=== PATIENT | male | born 1965 | race Caucasian/White ===

== ENCOUNTER → 2020-05-13 | Outpatient (CLI) | payer OTHER ==
--- NOTE | 2020-05-13 08:55 | NM ---
EXAMINATION TYPE: NM hepatobiliary w EF DATE OF EXAM: 05/13/2020 COMPARISON: NONE HISTORY: Right upper quadrant pain. TECHNIQUE: After the intravenous administration of 4.12 mCi Tc 99m Mebrofenin hepatobiliary scintigra phy is performed. Immediate images post injection. FINDINGS: There is satisfactory initial accumulation of tracer by the liver. The gallbladder is visualized wit hin 15 minutes. The small bowel activity is not even identified after 60 minutes. At one hour 8 oun heather of oral ensure plus is given to mimic CCK and gallbladder ejection fraction is calculated at 68 % , in the normal range. Therefore there is no scintigraphic evidence of cystic or common bile duct ob struction to suggest acute cholecystitis or gallbladder dyskinesia. IMPRESSION: Exam is within normal limits.
== END | disposition home or self-care (01) ==
LOC: RADNMMAIN 06:35
PROVIDERS: ATTEND Family Medicine
DX: R10.9 Unspecified abdominal pain (principal); R14.0 Abdominal distension (gaseous)
CPT/HCPCS: 78226; A9537

== ENCOUNTER 2020-06-04 10:52 | Day surgery (SDC) | payer OTHER ==
[2020-06-01 11:56] VITALS: BMI 27.5
[~2020-06-04 10:52] MED LIST: LACTATED RINGERS 1,000 ML IV SCH; LIDOCAINE 1% (10MG/ML) FOR IV START INTRADERMA PRN
[2020-06-04 11:37] VITALS: TEMP 97.8
[2020-06-04] MEDS ORDERED: LACTATED RINGERS 1,000 ML IV ONE (11:37)
[2020-06-04] MEDS ORDERED: LIDOCAINE 1% INJ 10MG/ML (20 ML MDV) ONE (12:17)
[2020-06-04] MEDS ORDERED: PROPOFOL 10 MG/ML 20 ML VIAL IV ONE (12:17)
--- NOTE | 2020-06-04 12:20 | P.GSHP ---
History of Present Illness H&P Date: 06/04/20 Chief Complaint: GERD, screening colonoscopy Is a 54-year-old male who presents today for EGD and screening colonoscopy. Patient has history of GERD. He's never had a colonoscopy before. Past Medical History Additional Past Medical History / Comment(s): RECTAL FISTULA. IBS History of Any Multi-Drug Resistant Organisms: None Reported Past Surgical History: Appendectomy Additional Past Surgical History / Comment(s): RECTAL FISTULECTOMY, COLONOSCOPY Past Anesthesia/Blood Transfusion Reactions: No Reported Reaction Smoking Status: Never smoker - Past Family History Mother Family Medical History: Cancer Sister(s) Family Medical History: Cancer Father Family Medical History: Cancer Medications and Allergies Home Medications Medication Instructions Recorded Confirmed Type Dicyclomine [Bentyl] 20 mg PO TID 06/01/20 06/01/20 History Allergies Allergy/AdvReac Type Severity Reaction Status Date / Time No Known Allergies Allergy Verified 06/01/20 11:48 Surgical - Exam Vital Signs Temp Pulse Resp BP Pulse Ox 97.8 F 57 L 18 175/80 98 06/04/20 11:36 06/04/20 11:36 06/04/20 11:36 06/04/20 11:36 06/04/20 11:36 - General well developed, well nourished, no distress - Eyes PERRL - ENT normal pinna - Neck no masses - Respiratory normal expansion - Cardiovascular Rhythm: regular - Abdomen Abdomen: soft, non tender Assessment and Plan Assessment: GERD we'll perform EGD. We'll perform screening colonoscopy.
--- NOTE | 2020-06-04 12:40 | P.OP ---
Date of Procedure: 06/04/20 Preoperative Diagnosis: GERD Screening colonoscopy Postoperative Diagnosis: Antral gastritis Mild esophagitis Transverse colon polyp Procedure(s) Performed: EGD Colonoscopy Anesthesia: MAC Surgeon: Donn Valentin Pathology: other (Antrum, esophagus, transverse colon polyp) Condition: stable Disposition: PACU Description of Procedure: The patient's placed on the endoscopy table lateral position. She received IV sedation. The gastroscope was oropharynx and passed in the esophagus and into the stomach. Scope then placed through the pylorus. The first and second portion of the duodenum appeared normal. Scope was then brought back the antrum this appeared mildly inflamed. A biopsies performed. The scope was unretroflexed and the remainder of the stomach appeared normal. There was a small hiatal hernia. The GE junction was at 39 cm. The distal esophagus appeared mildly inflamed. A biopsies performed. The proximal esophagus appeared normal. Scope was withdrawn for patient. Next digital rectal exam was performed which revealed no abnormalities. The flexible colonoscope was then placed patient anus passed rotator entire colon. The ileocecal valve was visualized. The cecum in a sitting colon appeared normal. In the transverse colon there was a small sessile polyp was removed with the cold forcep. The remainder of the transverse colon and descending colon and sigmoid colon appeared normal. Scope was then brought back the rectum and this appeared normal. Scope withdrawn for patient.
[2020-06-04 13:08] VITALS: BP 119/68; PULSE 52; RESP 18
== END 2020-06-04 13:43 | disposition home or self-care (01) ==
LOC: ORWHC2ENDO 10:52
PROVIDERS: ATTEND Surgery
DX: Z12.11 Encounter for screening for malignant neoplasm of colon (principal); D12.3 Benign neoplasm of transverse colon; K21.00 Gastro-esophageal reflux disease with esophagitis, without bleeding; K29.50 Unspecified chronic gastritis without bleeding; K44.9 Diaphragmatic hernia without obstruction or gangrene; K58.9 Irritable bowel syndrome, unspecified; Z87.19 Personal history of other diseases of the digestive system; Z90.49 Acquired absence of other specified parts of digestive tract; Z98.890 Other specified postprocedural states; Z79.899 Other long term (current) drug therapy; Z80.9 Family history of malignant neoplasm, unspecified
CPT/HCPCS: 88305; 45380; 43239; J2001; J2704

== ENCOUNTER → 2021-03-30 | Outpatient (CLI) | payer OTHER ==
--- NOTE | 2021-03-31 08:20 | XR ---
EXAMINATION TYPE: XR knee limited bilateral DATE OF EXAM: 03/30/2021 CLINICAL HISTORY: pain TECHNIQUE: Three views of the bilateral knees are obtained. COMPARISON: None. FINDINGS: There is no acute fracture/dislocation. The tri-compartment joint spaces appear within no rmal limits. The patellar spurring noted bilaterally. Overlying soft tissue appears unremarkable. IMPRESSION: There is no acute fracture or dislocation.ICD 10 NO FRACTURE, INITIAL EVALUATION
== END | disposition home or self-care (01) ==
LOC: RADXRMAIN 15:46
PROVIDERS: ATTEND Physician Assistant Medical
DX: M25.561 Pain in right knee (principal); M25.562 Pain in left knee

== ENCOUNTER → 2022-01-31 | Outpatient (CLI) | payer BC ==
--- NOTE | 2022-01-31 11:36 | CT ---
EXAMINATION TYPE: CT brain w con CT DLP: 1029.90 mGycm, Automated exposure control for dose reduction was used. DATE OF EXAM: 01/31/2022 11:30 AM COMPARISON: None. CLINICAL INDICATION:Male, 56 years old with history of R51.9 Headache, H53.9 vision Changes; Headache , vision problems TECHNIQUE: Axial CT images of the brain were obtained with coronal and sagittal reformats created and reviewed. Contrast used:100 ml mL of Isovue 300 with IV Contrast, Oral contrast used: none. FINDINGS: Extra-axial spaces: No abnormal extra-axial fluid collections. Ventricular system: Within normal limits Cerebral parenchyma: No acute intraparenchymal hemorrhage or mass effect. The corona-white junction is well differentiated. No abnormal enhancement is seen after the administration of intravenous contras t. Cerebellum: Unremarkable. Mass effect: No evidence of midline shift. Intracranial vasculature: unremarkable Soft tissues: Normal. Calvarium/osseous structures: No depressed skull fracture. Paranasal sinuses and mastoid air cells: Mild scattered paranasal sinus disease with mucosal thickeni ng. Visualized orbits: Orbital contents are intact. Intra and extraconal fat appears symmetric and grossl y unremarkable. IMPRESSION: 1. No acute intracranial process. 2. The orbits appear symmetrical without acute abnormality. No abnormal postcontrast enhancement.
== END | disposition home or self-care (01) ==
LOC: RADCTMAIN 10:30
PROVIDERS: ATTEND Family Medicine
DX: R51.9 Headache, unspecified (principal); H53.9 Unspecified visual disturbance
CPT/HCPCS: 70460; Q9967

== ENCOUNTER → 2022-10-10 | Outpatient (CLI) | payer OTHER ==
--- NOTE | 2022-10-11 10:46 | CT ---
EXAMINATION TYPE: CT abdomen w con DATE OF EXAM: 10/10/2022 COMPARISON: none HISTORY: Stomach pains CT DLP: 950 mGycm CONTRAST: CT scan of the abdomen is performed with Oral Contrast and with IV Contrast, patient injected with 10 0 mL of Isovue 300. FINDINGS: LUNG BASES-: No visible nodule. No infiltrate. LIVER/GB: No calcified gallstones. Hepatic steatosis with mild hepatomegaly. No space occupying he patic lesion. Biliary tree is of normal caliber. PANCREAS: No inflammation. No distinct mass. SPLEEN: No splenic enlargement. No lesion seen. ADRENALS: No nodule. No thickening. KIDNEYS/BLADDER: No hydronephrosis. No nephrolithiasis. No distinct renal mass. Urinary bladder g rossly unremarkable. BOWEL: Visualized bowel loops are of normal caliber. LYMPH NODES: No greater than 1cm abdominal or pelvic lymph nodes are appreciated. AORTA: No significant abnormality. OSSEOUS STRUCTURES: No significant abnormality is seen. OTHER: No significant additional abnormality is seen. IMPRESSION: 1. Hepatic steatosis with mild hepatomegaly.
== END | disposition home or self-care (01) ==
LOC: RADCTMAIN 08:35
PROVIDERS: ATTEND Family Medicine
DX: K76.0 Fatty (change of) liver, not elsewhere classified (principal); R16.0 Hepatomegaly, not elsewhere classified
CPT/HCPCS: 74160; Q9967

== ENCOUNTER → 2023-10-04 | Outpatient (CLI) | payer OTHER | END | disposition home or self-care (01) | LOC: LABWHC1 13:40 | PROVIDERS: ATTEND Internal Medicine | DX: K92.89 Other specified diseases of the digestive system (principal); K58.0 Irritable bowel syndrome with diarrhea | CPT/HCPCS: 36415; 82784; 83516 ==